=== PATIENT | male | born 1995 | race Two or more races ===

== ENCOUNTER 2017-05-31 19:41 | Emergency (ER) | payer OTHER ==
[~2017-05-31] VITALS: Ht 175.3 cm; Wt 109.3 kg
[~2017-05-31 19:41] MED LIST: MOTRIN400 MG PO; MOTRIN800 MG PO; PENICILLIN PO; TYLENOL WITH C1 EACH PO; ZOFRAN4 MG PO
[2017-05-31 23:51] VITALS: BP 150/76
== END 2017-05-31 23:54 | disposition home or self-care (01) ==
LOC: EME 19:41
DX: S61.011A Laceration without foreign body of right thumb without damage to nail, initial encounter (principal); W26.0XXA Contact with knife, initial encounter; Y93.89 Activity, other specified; Z23 Encounter for immunization
CPT/HCPCS: 73140; 99281; 99284; S0020